=== PATIENT | male | born 1945 | race Caucasian/White ===

== ENCOUNTER 2016-10-20 08:40 | Emergency (ER) | payer MEDICARE, OTHER ==
[2016-10-20 08:58] VITALS: BP 131/81
--- NOTE | 2016-10-20 09:00 | EDM.PDOC ---
[id number] LT EYE ISSUES Time Seen by Provider: 10/20/16 08:45 Source of Information: Reports: Patient, Family History Limitations: Reports: No Limitations - History of Present Illness INITIAL COMMENTS - FREE TEXT/NARRATIVE: 71-year-old male with intense left eye redness and swelling over the past 24 hours. It started yesterday afternoon with a bloodshot eye, but this morning when he woke up it's very swollen, feels tight with some pressure. His vision is unaffected. He's had no specific trauma but he lifted a very heavy desk yesterday. He is on an aspirin a day, no other anticoagulants. Onset: Gradual (Over the past 24 hours) Location: Reports: Other (Left eye) Severity: Moderate Associated Symptoms: Reports: Other (He incidentally has a gout flareup of his left foot at this time) Left Eye Pain Score (Numeric/FACES): 1 - Related Data Allergies Allergy/AdvReac Type Severity Reaction Status Date / Time No Known Allergies Allergy Verified 10/20/16 08:52 Home Meds: Home Meds Allopurinol [Zyloprim] 50 mg PO DAILY 09/09/14 [History] Aspirin [Children's Aspirin] 81 mg PO DAILY 09/09/14 [History] Calcium Carbonate/Vitamin D3 [Calcium Carbonate/Vitamin D 1250 MG-200 Unit] 1 tab PO DAILY 09/09/14 [History] Citalopram Hydrobromide [Celexa] 20 mg PO BID 09/09/14 [History] Divalproex Sodium [Depakote] 250 mg PO BID 09/09/14 [History] Furosemide 20 mg PO DAILY 09/09/14 [History] Isosorbide Mononitrate [Imdur] 60 mg PO DAILY 09/09/14 [History] Lisinopril 2.5 mg PO DAILY 09/09/14 [History] Melatonin 5 mg PO BEDTIME 09/09/14 [History] Metoprolol Succinate [Toprol XL] 25 mg PO DAILY 09/09/14 [History] Potassium Gluconate [Potassium] 595 mg PO .QOD 09/09/14 [History] Simvastatin [Zocor] 40 mg PO BEDTIME 09/09/14 [History] Albuterol Sulfate [Proair Hfa] 1 - 2 puff INH Q4H PRN 10/06/15 [History] Famotidine 20 mg PO BID 10/06/15 [History] Gabapentin [Neurontin] 300 mg PO QID 10/06/15 [History] Nitroglycerin [Nitrostat] 1 tab SL ASDIRECTED 10/06/15 [History] predniSONE [Prednisone] 20 mg PO DAILY PRN 10/09/15 [History] Social & Family History - Tobacco Use Smoking Status *Q: Former Smoker Years of Tobacco use: 20 - Recreational Drug Use Recreational Drug Use: No ED ROS GENERAL - Review of Systems Review Of Systems: See Below Constitutional: Denies: Fever, Chills, Malaise HEENT: Reports: Eye Pain (Left eye pressure from the swelling). Denies: Vision Change Respiratory: Denies: Shortness of Breath Cardiovascular: Denies: Chest Pain GI/Abdominal: Denies: Nausea, Vomiting : Reports: No Symptoms Musculoskeletal: Reports: Other (Joint pain of his left foot) Neurological: Reports: No Symptoms ED EXAM GENERAL W FULL EYE - Physical Exam Exam: See Below Exam Limited By: No Limitations General Appearance: Alert, No Apparent Distress Eye Exam: Left Eye: Other (Patient has marked conjunctival and scleral hemorrhage which is contained and not actively bleeding, especially laterally of the left eye), Bilateral Eye: EOMI, PERRL Eyelids: Left: Edema (A small amount of hemorrhage and swelling is present of the left lower lid) Conjunctiva & Sclera: Left: Injected, Subconjuctival Hemorrhage Extraocular Movements: Bilateral: Intact Respiratory/Chest: No Respiratory Distress Course - Vital Signs Last Recorded V/S: Last Vital Signs Temp 97.3 F 10/20/16 08:52 Pulse 73 10/20/16 08:52 Resp 15 10/20/16 08:52 BP 131/81 10/20/16 08:52 Pulse Ox 96 10/20/16 08:52 - Re-Assessments/Exams Free Text/Narrative Re-Assessment/Exam: 10/20/16 08:59 This patient has a fairly significant subconjunctival hemorrhage of the left eye. Phone consultation with ophthalmology in [place] was obtained. 10/20/16 09:23 ophthalmology recommended conservative care only. This was relayed to the patient. I did recommend he recheck with optometry in the next day or 2 to follow the healing of the hemorrhage. Departure - Departure Time of Disposition: 09:38 Disposition: Home, Self-Care 01 Condition: Good Clinical Impression: Hemorrhage of conjunctiva Qualifiers: Laterality: left Qualified Code(s): H11.32 - Conjunctival hemorrhage, left eye - Discharge Information Instructions: Subconjunctival Hemorrhage Referrals: Alexis Mortensen PA-C [Primary Care Provider] - Forms: ED Department Discharge Care Plan Goals: Cool compresses to the eye, holding your aspirin for a few days may be beneficial. Recheck with optometry in the next few days to follow improvement.
== END 2016-10-20 09:39 | disposition home or self-care (01) ==
LOC: JP.ED 08:40
DX: H11.32 Conjunctival hemorrhage, left eye (principal); Z87.891 Personal history of nicotine dependence; Z79.899 Other long term (current) drug therapy; Z79.82 Long term (current) use of aspirin
CPT/HCPCS: 99283

== ENCOUNTER 2017-07-15 03:26 | Emergency (ER) | payer MEDICARE, OTHER ==
[2017-07-15] MEDS ORDERED: Sodium Chloride 0.9% 10 ML Syringe FLUSH PRN (03:56)
[2017-07-15] MEDS ORDERED: Aspirin 81 MG Tab.Chew PO ONE (03:56)
--- NOTE | 2017-07-15 03:59 | EDM.PDOC ---
ED HPI GENERAL MEDICAL PROBLEM - General Chief Complaint: Cardiovascular Problem Stated Complaint: SOB Time Seen by Provider: 07/15/17 03:50 Source of Information: Reports: Patient, Family, RN Notes Reviewed History Limitations: Reports: No Limitations - History of Present Illness INITIAL COMMENTS - FREE TEXT/NARRATIVE: 71-year-old gentleman presents to the emergency department day complaint of shortness of breath chest pressure, he states this all started about 1 AM this morning mainly difficulty breathing, no nausea vomiting no diaphoresis a history of stenting was recently catheterized at the [facility] in April of this year he states no stenting was done at that time denies pain Pain Score (Numeric/FACES): 0 - Related Data Allergies Allergy/AdvReac Type Severity Reaction Status Date / Time No Known Allergies Allergy Verified 07/15/17 03:30 Home Meds: Home Meds Allopurinol [Zyloprim] 50 mg PO DAILY 09/09/14 [History] Aspirin [Children's Aspirin] 81 mg PO DAILY 09/09/14 [History] Calcium Carbonate/Vitamin D3 [Calcium Carbonate/Vitamin D 1250 MG-200 Unit] 1 tab PO BEDTIME 09/09/14 [History] Furosemide 20 mg PO DAILY 09/09/14 [History] Lisinopril 30 mg PO BEDTIME 09/09/14 [History] Melatonin 5 mg PO BEDTIME 09/09/14 [History] Potassium Gluconate [Potassium] 595 mg PO ASDIRECTED 09/09/14 [History] Simvastatin [Zocor] 40 mg PO BEDTIME 09/09/14 [History] Famotidine 20 mg PO BID 10/06/15 [History] Nitroglycerin [Nitrostat] 0.4 mg SL ASDIRECTED 10/06/15 [History] predniSONE [Prednisone] 20 mg PO DAILY PRN 10/09/15 [History] FLUoxetine [PROzac] 60 mg PO DAILY 07/15/17 [History] Past Medical History HEENT History: Reports: Impaired Vision Cardiovascular History: Reports: Bypass, CAD, Heart Failure, Hypertension Gastrointestinal History: Reports: GERD Genitourinary History: Reports: Other (See Below) Other Genitourinary History: PROSTATE CA Musculoskeletal History: Reports: Arthritis, Back Pain, Chronic Psychiatric History: Reports: Other (See Below) Other Psychiatric History: REPETATIVE THOUGHTS AND MOVEMENTS Oncologic (Cancer) History: Reports: Prostate - Infectious Disease History Infectious Disease History: Reports: Chicken Pox, Shingles - Past Surgical History HEENT Surgical History: Reports: Tonsillectomy Cardiovascular Surgical History: Reports: Coronary Artery Stent GI Surgical History: Reports: Cholecystectomy Neurological Surgical History: Reports: Spinal Fusion, Other (See Below) Other Neurological Surgeries/Procedures: spinal stenosis Musculoskeletal Surgical History: Reports: Other (See Below) Other Musculoskeletal Surgeries/Procedures:: REPAIR OF STENOSIS AND HERNIATED DISC Social & Family History - Tobacco Use Smoking Status *Q: Never Smoker Years of Tobacco use: 20 - Caffeine Use Caffeine Use: Reports: Tea - Recreational Drug Use Recreational Drug Use: No ED ROS GENERAL - Review of Systems Review Of Systems: See Below Constitutional: Reports: No Symptoms HEENT: Reports: No Symptoms Respiratory: Reports: Shortness of Breath. Denies: Wheezing, Cough, Sputum Cardiovascular: Reports: Chest Pain, Dyspnea on Exertion GI/Abdominal: Reports: No Symptoms : Reports: No Symptoms Musculoskeletal: Reports: No Symptoms Skin: Reports: No Symptoms Neurological: Reports: No Symptoms ED EXAM, GENERAL - Physical Exam Exam: See Below Exam Limited By: No Limitations General Appearance: Alert, Mild Distress Head: Atraumatic, Normocephalic Neck: Normal Inspection, Supple, Non-Tender, Full Range of Motion Respiratory/Chest: No Respiratory Distress, No Accessory Muscle Use, Chest Non- Tender, Crackles (Fine crackles in the bases bilaterally) Cardiovascular: Regular Rate, Rhythm, No Murmur GI/Abdominal: Soft, Non-Tender Course - Vital Signs Last Recorded V/S: Last Vital Signs Temp 97.0 F 07/15/17 03:44 Pulse 59 L 07/15/17 05:04 Resp 11 L 07/15/17 05:04 BP 108/59 L 07/15/17 05:04 Pulse Ox 94 L 07/15/17 05:04 - Orders/Labs/Meds Orders: Active Orders 24 hr Category Date Time Status Cardiac Monitoring [RC] .As Directed Care 07/15/17 03:56 Active EKG Documentation Completion [RC] ASDIRECTED Care 07/15/17 03:57 Active Peripheral IV Care [RC] . DIRECTED Care 07/15/17 03:56 Active Chest 2V [CR] Stat Exams 07/15/17 03:57 Taken Lactated Ringers [Ringers, Lactated] 1,000 ml Med 07/15/17 04:00 Active IV ASDIRECTED Sodium Chloride 0.9% [Saline Flush] Med 07/15/17 03:56 Active 10 ml FLUSH ASDIRECTED PRN Peripheral IV Insertion Adult [OM.PC] Stat Oth 07/15/17 03:56 Ordered EKG 12 Lead [EK] Stat Ther 07/15/17 03:57 Ordered Medication Orders Lactated Ringer's (Ringers, Lactated) 1,000 mls @ 500 mls/hr IV ASDIRECTED GAMAL Last Admin: 07/15/17 04:10 Dose: 500 mls/hr Sodium Chloride (Saline Flush) 10 ml FLUSH ASDIRECTED PRN PRN Reason: Keep Vein Open Last Admin: 07/15/17 04:12 Dose: 10 ml Labs: Laboratory Tests 07/15/17 07/15/17 Range/Units 03:56 04:05 WBC 4.2 L (4.5-11.0) K/uL RBC 3.46 L (4.30-5.90) M/uL Hgb 10.2 L (12.0-15.0) g/dL Hct 31.3 L (40.0-54.0) % MCV 91 (80-98) fL MCH 30 (27-31) pg MCHC 33 (32-36) % Plt Count 114 L (150-400) K/uL Neut % (Auto) 41 (36-66) % Lymph % (Auto) 38 (24-44) % Pepin % (Auto) 19 H (2-6) % Eos % (Auto) 2 (2-4) % Baso % (Auto) 0 (0-1) % Sodium 136 L (140-148) mmol/L Potassium 4.1 (3.6-5.2) mmol/L Chloride 102 (100-108) mmol/L Carbon Dioxide 19 L (21-32) mmol/L Anion Gap 19.1 H (5.0-14.0) mmol/L BUN 44 H (7-18) mg/dL Creatinine 2.7 H D (0.8-1.3) mg/dL Est Cr Clr Drug Dosing 24.37 mL/min Estimated GFR (MDRD) 23 L (>60) Glucose 87 (74-106) mg/dL Calcium 9.0 (8.5-10.1) mg/dL Total Bilirubin 1.0 (0.2-1.0) mg/dL AST 49 H (15-37) U/L ALT 54 (12-78) U/L Alkaline Phosphatase 90 (46-116) U/L CK-MB (CK-2) 2.2 (0-3.6) mg/mL Troponin I < 0.017 (0.000-0.056) ng/mL NT-Pro-B Natriuret Pep 657 H (5-125) pg/mL Total Protein 6.8 (6.4-8.2) g/dL Albumin 4.1 (3.4-5.0) g/dL Globulin 2.7 (2.3-3.5) g/dL Albumin/Globulin Ratio 1.5 (1.2-2.2) Meds: Medications Generic Name Dose Route Start Last Admin Trade Name Freq PRN Reason Stop Dose Admin Lactated Ringer's 1,000 mls @ 500 mls/hr 07/15/17 04:00 07/15/17 04:10 Ringers, Lactated IV 500 mls/hr ASDIRECTED GAMAL Administration Sodium Chloride 10 ml 07/15/17 03:56 07/15/17 04:12 Saline Flush FLUSH 10 ml ASDIRECTED PRN Administration Keep Vein Open Discontinued Medications Generic Name Dose Route Start Last Admin Trade Name Freq PRN Reason Stop Dose Admin Aspirin 324 mg 07/15/17 03:56 07/15/17 04:10 Aspirin PO 07/15/17 03:57 324 mg ONETIME ONE Administration Departure - Departure Time of Disposition: 05:40 Disposition: Home, Self-Care 01 Condition: Good Clinical Impression: SOB (shortness of breath) Referrals: Fer May DIETARY MANAGER [Primary Care Provider] - Forms: ED Department Discharge Additional Instructions: Please followup with your primary care provider in 3-5 days if not better, please call return to the emergency department with worsening of symptoms. - My Orders Last 24 Hours: My Active Orders 07/15/17 03:56 Cardiac Monitoring [RC] .As Directed Peripheral IV Care [RC] . DIRECTED Sodium Chloride 0.9% [Saline Flush] 10 ml FLUSH ASDIRECTED PRN Peripheral IV Insertion Adult [OM.PC] Stat 07/15/17 03:57 EKG Documentation Completion [RC] ASDIRECTED Chest 2V [CR] Stat EKG 12 Lead [EK] Stat 07/15/17 04:00 Lactated Ringers [Ringers, Lactated] 1,000 ml IV ASDIRECTED - Assessment/Plan Last 24 Hours: My Active Orders 07/15/17 03:56 Cardiac Monitoring [RC] .As Directed Peripheral IV Care [RC] . DIRECTED Sodium Chloride 0.9% [Saline Flush] 10 ml FLUSH ASDIRECTED PRN Peripheral IV Insertion Adult [OM.PC] Stat 07/15/17 03:57 EKG Documentation Completion [RC] ASDIRECTED Chest 2V [CR] Stat EKG 12 Lead [EK] Stat 07/15/17 04:00 Lactated Ringers [Ringers, Lactated] 1,000 ml IV ASDIRECTED Plan: Assessment Acuity = acute Site and laterality = dyspnea complicated patient with known history of coronary artery disease and congestive heart failure Etiology = probable panic attack due to power outage while wearing CPAP Manifestations = none Location of injury = Home Lab values = hemoglobin low at 10.2 consistent with normochromic anemia creatinine elevated at 2.7 consistent with chronic renal failure stage GIV, troponin is negative, BNP mildly elevated at 657, baseline chest x-ray I did review films myself I cannot appreciate any acute process, the official read from radiology is pending, EKG that show ST depressions in leads V1 and V2 V3 however these are not new Plan He had significant improvement with time, feels he is back to his baseline I did review lab work EKG results with him plan is follow-up primary care to 5 days if not better This note was dictated using [employer] voice recognition software please call with any questions on syntax or mariano.
[2017-07-15] MEDS ORDERED: Lactated Ringers 1,000 ML IV SCH (04:00)
[2017-07-15 05:04] VITALS: BP 108/59
--- NOTE | 2017-07-15 09:02 | CR ---
CHEST: Sitting AP and lateral CLINICAL HISTORY:Chest pain COMPARISON:CT chest 2017 FINDINGS: Heart size is upper limits of normal. Patient has had previous sternotomy. There are ather osclerotic changes in the aorta.. There is no infiltrate, effusion or pneumothorax. IMPRESSION: Previous sternotomy Borderline cardiomegaly No acute cardiopulmonary process
== END 2017-07-15 05:44 | disposition home or self-care (01) ==
LOC: JP.ED 03:26
DX: R06.02 Shortness of breath (principal); I11.0 Hypertensive heart disease with heart failure; I50.9 Heart failure, unspecified; K21.9 Gastro-esophageal reflux disease without esophagitis; Z79.82 Long term (current) use of aspirin; Z79.899 Other long term (current) drug therapy
CPT/HCPCS: 36415; 71046; 80053; 82553; 83880; 84484; 85025; 93005; 99285; A9270; J7050; J7120; 93010

== ENCOUNTER 2017-09-29 05:37 | Emergency (ER) | payer MEDICARE, OTHER ==
[2017-09-29 05:47] VITALS: BP 129/72
--- NOTE | 2017-09-29 06:07 | EDM.PDOC ---
ED HPI GENERAL MEDICAL PROBLEM - General Chief Complaint: Respiratory Problem Stated Complaint: SOB Time Seen by Provider: 09/29/17 05:45 Source of Information: Reports: Patient History Limitations: Reports: No Limitations - History of Present Illness INITIAL COMMENTS - FREE TEXT/NARRATIVE: 72-year-old male comes in with shortness of breath overnight. Slight chest pressure but no pain. This is but an ongoing recurrent problem for him, he had several hospital workups ending up at [facility] and was told he has "congestive heart failure". Onset: Gradual Duration: Hour(s): (Symptoms for about 12 hours) Severity: Mild Worsens with: Reports: Other (Lying down or resting seems worse) Associated Symptoms: Reports: Chest Pain (Slight chest pressure) chest pressure Pain Score (Numeric/FACES): 6 - Related Data Allergies Allergy/AdvReac Type Severity Reaction Status Date / Time No Known Allergies Allergy Verified 09/29/17 05:44 Home Meds: Home Meds Allopurinol [Zyloprim] 50 mg PO DAILY 09/09/14 [History] Aspirin [Children's Aspirin] 81 mg PO DAILY 09/09/14 [History] Calcium Carbonate/Vitamin D3 [Calcium Carbonate/Vitamin D 1250 MG-200 Unit] 1 tab PO BEDTIME 09/09/14 [History] Furosemide 20 mg PO DAILY 09/09/14 [History] Lisinopril 30 mg PO BEDTIME 09/09/14 [History] Melatonin 5 mg PO BEDTIME 09/09/14 [History] Potassium Gluconate [Potassium] 595 mg PO ASDIRECTED 09/09/14 [History] Simvastatin [Zocor] 40 mg PO BEDTIME 09/09/14 [History] Famotidine 20 mg PO BID 10/06/15 [History] Nitroglycerin [Nitrostat] 0.4 mg SL ASDIRECTED 10/06/15 [History] predniSONE [Prednisone] 20 mg PO DAILY PRN 10/09/15 [History] FLUoxetine [PROzac] 60 mg PO DAILY 07/15/17 [History] Past Medical History HEENT History: Reports: Impaired Vision Cardiovascular History: Reports: Bypass, CAD, Heart Failure, Hypertension Respiratory History: Reports: SOB, Other (See Below) Other Respiratory History: Cpap Gastrointestinal History: Reports: GERD Genitourinary History: Reports: Other (See Below) Other Genitourinary History: PROSTATE CA Musculoskeletal History: Reports: Arthritis, Back Pain, Chronic Psychiatric History: Reports: Anxiety, Mood Swings, OCD, Other (See Below) Other Psychiatric History: REPETATIVE THOUGHTS AND MOVEMENTS. Irritability and anger. mild cognitive impairment Oncologic (Cancer) History: Reports: Prostate - Infectious Disease History Infectious Disease History: Reports: Chicken Pox, Shingles - Past Surgical History HEENT Surgical History: Reports: Tonsillectomy Cardiovascular Surgical History: Reports: Coronary Artery Stent GI Surgical History: Reports: Cholecystectomy Neurological Surgical History: Reports: Spinal Fusion, Other (See Below) Other Neurological Surgeries/Procedures: spinal stenosis Musculoskeletal Surgical History: Reports: Other (See Below) Other Musculoskeletal Surgeries/Procedures:: REPAIR OF STENOSIS AND HERNIATED DISC Social & Family History - Tobacco Use Smoking Status *Q: Never Smoker - Caffeine Use Caffeine Use: Reports: Coffee - Recreational Drug Use Recreational Drug Use: No ED ROS GENERAL - Review of Systems Review Of Systems: See Below Constitutional: Denies: Fever Respiratory: Reports: Shortness of Breath. Denies: Cough Cardiovascular: Reports: Chest Pain GI/Abdominal: Denies: Abdominal Pain, Nausea, Vomiting Neurological: Denies: Headache Psychiatric: Reports: Anxiety ED EXAM, GENERAL - Physical Exam Exam: See Below Exam Limited By: No Limitations General Appearance: Alert, Anxious Head: Atraumatic Respiratory/Chest: No Respiratory Distress, Lungs Clear Cardiovascular: Regular Rate, Rhythm. No: Extra Beats Extremities: Pedal Edema (Just a trace of lower extremity edema, symmetric) Course - Vital Signs Last Recorded V/S: Last Vital Signs Temp 98.1 F 09/29/17 05:51 Pulse 59 L 09/29/17 05:51 Resp 14 09/29/17 05:51 BP 129/72 09/29/17 05:51 Pulse Ox 97 09/29/17 05:51 - Orders/Labs/Meds Meds: Medications Discontinued Medications Generic Name Dose Route Start Last Admin Trade Name Freq PRN Reason Stop Dose Admin Lorazepam 1 mg 09/29/17 06:43 09/29/17 06:49 Ativan PO 09/29/17 06:44 1 mg ONETIME ONE Administration - Re-Assessments/Exams Free Text/Narrative Re-Assessment/Exam: 09/29/17 06:41 Reviewed his medical records from a very similar visit a few months ago, a huge workup was negative. An angiogram in July needed no interventions. A two-view chest x-ray shows no change in the last 8 months. There is no congestive failure. No infiltrates. O2 saturations remained 98-100%. We discussed anxiety and the patient admitted he feels anxious. He was given 1 mg of oral Ativan to take when he gets home and he can follow-up with his primary care later this week if he is not improving satisfactorily or return to the emergency room if worsening Departure - Departure Time of Disposition: 06:52 Disposition: Home, Self-Care 01 Condition: Good Clinical Impression: SOB (shortness of breath) - Discharge Information *PRESCRIPTION DRUG MONITORING PROGRAM REVIEWED*: No Instructions: Shortness of Breath, Adult, [id number] Referrals: PCP,None [Primary Care Provider] - Forms: ED Department Discharge Care Plan Goals: Continue your current medications and try the one dose of Ativan to help you get some rest today. Activity as tolerated. Recheck at the clinic anytime this week if not improving satisfactorily, or return to the emergency room if you feel you are worsening or need further care.
[2017-09-29] MEDS ORDERED: LORazepam 1 MG Tab PO ONE (06:43)
--- NOTE | 2017-09-29 09:42 | CR ---
CHEST: 2 view CLINICAL HISTORY:Dyspnea COMPARISON:15 Jul 2017 FINDINGS: Heart is enlarged. Patient has had previous sternotomy. There are atherosclerotic changes in the aorta.. Coronary vascular is normal. No fractures are seen. IMPRESSION: Cardiomegaly Previous sternotomy No acute cardiopulmonary process
== END 2017-09-29 06:52 | disposition home or self-care (01) ==
LOC: JP.ED 05:37
DX: R06.02 Shortness of breath (principal); Z79.82 Long term (current) use of aspirin
CPT/HCPCS: 71046; 99285; A9270

== ENCOUNTER 2017-11-09 08:44 | Emergency (ER) | payer MEDICARE, OTHER ==
[2017-11-09 09:41] VITALS: BP 104/49
--- NOTE | 2017-11-09 10:04 | EDM.PDOC ---
ED HPI GENERAL MEDICAL PROBLEM - General Chief Complaint: Respiratory Problem Stated Complaint: SHORTNESS OF BREATH Time Seen by Provider: 11/09/17 09:45 Source of Information: Reports: Patient, Family History Limitations: Reports: No Limitations - History of Present Illness INITIAL COMMENTS - FREE TEXT/NARRATIVE: 72-year-old male with shortness of breath since the middle of last night. He's been taking 3-4 oxycodone daily for the past 3 weeks, ran out on Friday and did not tell his primary doctor because he wanted to see if he could go without it and now is feeling very uncomfortable. No cough, no chest pain, no peripheral edema. He feels increased anxiety and depression over the past several days. Onset: Gradual (Over the last 12 hours) Severity: Mild Associated Symptoms: Reports: Shortness of Breath, Other (Anxiety, depression and restlessness). Denies: Diaphoresis, Fever/Chills, Nausea/Vomiting - Related Data Allergies Allergy/AdvReac Type Severity Reaction Status Date / Time No Known Allergies Allergy Verified 11/09/17 09:36 Home Meds: Home Meds Allopurinol [Zyloprim] 50 mg PO DAILY 09/09/14 [History] Aspirin [Children's Aspirin] 81 mg PO DAILY 09/09/14 [History] Calcium Carbonate/Vitamin D3 [Calcium Carbonate/Vitamin D 1250 MG-200 Unit] 1 tab PO BEDTIME 09/09/14 [History] Lisinopril 20 mg PO DAILY 09/09/14 [History] Melatonin 5 mg PO BEDTIME 09/09/14 [History] Potassium Gluconate [Potassium] 595 mg PO ASDIRECTED 09/09/14 [History] Simvastatin [Zocor] 40 mg PO BEDTIME 09/09/14 [History] Famotidine 20 mg PO BID 10/06/15 [History] FLUoxetine [PROzac] 60 mg PO DAILY 07/15/17 [History] Carvedilol 2 tab PO DAILY 11/09/17 [History] Clopidogrel Bisulfate [Clopidogrel] 1 tab PO DAILY 11/09/17 [History] Tamsulosin [Flomax] 1 tab PO DAILY 11/09/17 [History] Past Medical History HEENT History: Reports: Impaired Vision Cardiovascular History: Reports: Bypass, CAD, Heart Failure, Hypertension Respiratory History: Reports: SOB, Other (See Below) Other Respiratory History: Cpap Gastrointestinal History: Reports: GERD Genitourinary History: Reports: Other (See Below) Other Genitourinary History: PROSTATE CA Musculoskeletal History: Reports: Arthritis, Back Pain, Chronic Psychiatric History: Reports: Anxiety, Mood Swings, OCD, Other (See Below) Other Psychiatric History: REPETATIVE THOUGHTS AND MOVEMENTS. Irritability and anger. mild cognitive impairment Oncologic (Cancer) History: Reports: Prostate - Infectious Disease History Infectious Disease History: Reports: Chicken Pox, Shingles - Past Surgical History HEENT Surgical History: Reports: Tonsillectomy Cardiovascular Surgical History: Reports: Coronary Artery Stent GI Surgical History: Reports: Cholecystectomy Neurological Surgical History: Reports: Spinal Fusion, Other (See Below) Other Neurological Surgeries/Procedures: spinal stenosis Musculoskeletal Surgical History: Reports: Other (See Below) Other Musculoskeletal Surgeries/Procedures:: REPAIR OF STENOSIS AND HERNIATED DISC Social & Family History - Tobacco Use Smoking Status *Q: Never Smoker - Caffeine Use Caffeine Use: Reports: Coffee - Recreational Drug Use Recreational Drug Use: No ED ROS GENERAL - Review of Systems Review Of Systems: See Below Constitutional: Denies: Fever, Chills HEENT: Reports: No Symptoms Respiratory: Reports: Shortness of Breath. Denies: Cough Cardiovascular: Denies: Chest Pain, Palpitations GI/Abdominal: Denies: Abdominal Pain, Nausea : Reports: No Symptoms Musculoskeletal: Reports: Other (Chronic pain of his back shoulder and hip) Skin: Denies: Rash Neurological: Denies: Headache Psychiatric: Reports: Anxiety, Depression ED EXAM, GENERAL - Physical Exam Exam: See Below Exam Limited By: No Limitations General Appearance: Alert, No Apparent Distress, Anxious Eye Exam: Bilateral Eye: EOMI Head: Atraumatic Respiratory/Chest: No Respiratory Distress, Lungs Clear Cardiovascular: Regular Rate, Rhythm, No Murmur GI/Abdominal: Soft, Non-Tender Extremities: Other (Just a trace of edema of the lower extremities) Neurological: Alert, Oriented, No Motor/Sensory Deficits Psychiatric: Depressed Mood, Flat Affect Skin Exam: Warm, Dry Course - Vital Signs Last Recorded V/S: Last Vital Signs Temp 97.3 F 11/09/17 09:39 Pulse 60 11/09/17 09:39 Resp 15 11/09/17 09:39 BP 104/49 L 11/09/17 09:39 Pulse Ox 95 11/09/17 09:39 - Orders/Labs/Meds Orders: Active Orders 24 hr Category Date Time Status Chest 2V [CR] Routine Exams 11/09/17 09:56 Taken - Re-Assessments/Exams Free Text/Narrative Re-Assessment/Exam: 11/09/17 10:03 A two-view chest x-ray was obtained, LACE STRIPPER search was done and the patient was given 90 5 mg oxycodone 3 weeks ago. 11/09/17 10:31 Patient returned from x-ray and is feeling much better, he's calmed down and his dyspnea has improved. X-ray is normal baseline. 11/09/17 10:33 I had a lengthy discussion with the patient and his about possible treatment options. He declined a psychologist evaluation and his felt he was not a danger or threat and was comfortable taking him home. He wants to try a dose of oxycodone just at bedtime, and discuss this with his primary provider in the next few days. He really has a strong interest in medical marijuana. Departure - Departure Time of Disposition: 10:51 Disposition: Home, Self-Care 01 Condition: Good Clinical Impression: Chronic pain disorder, Anxiety about health - Discharge Information Instructions: Chronic Pain, Adult Referrals: Fer May NP [Primary Care Provider] - Forms: ED Department Discharge Care Plan Goals: Continue your current medications and use oxycodone as discussed. Recheck with your regular provider in the next 2-4 days to discuss options of treatment. Return to the emergency room if you feel you are worsening despite treatment. - My Orders Last 24 Hours: My Active Orders 11/09/17 09:56 Chest 2V [CR] Routine - Assessment/Plan Last 24 Hours: My Active Orders 11/09/17 09:56 Chest 2V [CR] Routine
--- NOTE | 2017-11-10 10:02 | CR ---
CHEST: 2 view CLINICAL HISTORY:Dyspnea COMPARISON:29 September 2017 FINDINGS: Heart size is normal. There has been previous sternotomy. There are atherosclerotic change s in the aorta. One calixto are clear. IMPRESSION: Previous sternotomy No acute cardiopulmonary process or significant change from prior study
== END 2017-11-09 10:51 | disposition home or self-care (01) ==
LOC: JP.ED 08:44
DX: G89.4 Chronic pain syndrome (principal); F41.9 Anxiety disorder, unspecified; I11.0 Hypertensive heart disease with heart failure; I50.9 Heart failure, unspecified; Z79.82 Long term (current) use of aspirin; Z79.899 Other long term (current) drug therapy
CPT/HCPCS: 71046; 71046-26; 99285

== ENCOUNTER 2018-06-03 07:34 | Day surgery (SDC) | payer MEDICARE, OTHER ==
[~2018-06-03 07:34] MED LIST: Povidone-Iodine 10% Soln 118.25 ML Bottle ONE
[2018-06-03] MEDS ORDERED: Ondansetron 4 MG/2 ML SDV ONE (07:55)
[2018-06-03] MEDS ORDERED: Succinylcholine 200 MG/10 ML MDV ONE (07:55)
[2018-06-03] MEDS ORDERED: Midazolam 1 MG/ML 2 ML SDV ONE (07:55)
[2018-06-03] MEDS ORDERED: fentaNYL 250 MCG/5 ML SDV ONE (07:55)
[2018-06-03] MEDS ORDERED: Dexamethasone 4 MG/ML SDV ONE (07:55)
[2018-06-03] MEDS ORDERED: Rocuronium 50 MG/5 ML Vial ONE (07:55)
[2018-06-03] MEDS ORDERED: Propofol 200 MG/20 ML SDV ONE (07:55)
[2018-06-03] MEDS ORDERED: Acetaminophen 500 MG Tab PO ONE (08:00)
[2018-06-03] MEDS ORDERED: Nozin Nasal Sanitizer NASBOTH ONE (08:00)
[2018-06-03] MEDS ORDERED: Scopolamine 1.5 MG Transdermal Patch TOP SCH (08:00)
[2018-06-03] MEDS ORDERED: Lidocaine 1% PF 2 ML SDV ONE (08:00)
[2018-06-03] MEDS ORDERED: Clindamycin Phosphate 900 MG in Sodium Chloride 0.9% 100 ML IV ONE (08:15)
[2018-06-03] MEDS: Lactated Ringers 1,000 ML IV SCH ×2 (09:01→11:34)
[2018-06-03] MEDS ORDERED: Phenylephrine 1% 10 MG/ML SDV ONE (09:58)
[2018-06-03] MEDS ORDERED: ePHEDrine 50 MG/ML SDV ONE (10:20)
[2018-06-03] MEDS ORDERED: Lactated Ringers 1,000 ML ONE (11:08)
[2018-06-03] MEDS ORDERED: Acetaminophen 325 MG Tab PO PRN (11:19)
[2018-06-03] MEDS ORDERED: Acetaminophen/HYDROcodone 325-5 MG Tab PO PRN (11:19)
[2018-06-03] MEDS ORDERED: Morphine 2 MG/ML Syringe IVPUSH PRN (11:31)
[2018-06-03] MEDS ORDERED: Morphine 2 MG/ML Syringe IVPUSH ONE (11:32)
[2018-06-03] MEDS: Sodium Chloride 0.9% 1,000 ML IV SCH ×2 (12:16→22:16)
--- NOTE | 2018-06-03 16:23 | PCM.OPNOTE ---
- General Post-Op/Procedure Note Date of Surgery/Procedure: 06/03/18 Operative Procedure(s): Hemiarthroplasty right shoulder, Sheryl TM size 14 stem , 42 mm head Findings: Osteoarthritis right shoulder Pre Op Diagnosis: Osteoarthritis right shoulder Post-Op Diagnosis: Same Anesthesia Technique: General ET Tube, Regional Block Primary Surgeon: Simone Key EBL in mLs: 200 Complications: None Condition: Good Free Text/Narrative:: Intake & Output 06/03/18 06/03/18 06/03/18 06:59 14:59 22:59 Intake Total 75 Output Total 100 Balance -25 Indications: Javier is a 72-year-old gentleman with a history of progressive pain in his right shoulder for the past several months. Range of motion is becoming increasingly difficult and he has pain with reaching and activities of daily living. Examination and imaging are consistent with osteoarthritis of the glenohumeral joint. Rotator cuff is intact by exam and imaging. He has no significant deformity of the glenoid. Hemiarthroplasty of the right shoulder isrecommended, with the possibility of a total shoulder arthroplasty if significant damage is noted on the glenoid side. Risks, benefits and potential complications were discussed. He agrees to proceed. procedure: After adequate anesthesia was obtained patient was placed in a modified beachchair position. Right shoulder and arm were then prepped and draped in a sterile fashion. Anterior incision was made and carried down through the subcutaneous tissues. Hemostasis was obtained with electrocautery.The deltopectoral interval was identified and the cephalic vein was retracted laterally with the deltoid.Blunt dissection carried down to the subscapularis. Plane was developed beneath the deltoid and a self-retaining retractor was placed. Conjoined tendon was intact. The subscapularis was intact. The tendon was divided just under than a centimeter from its attachment and sutures were placed in the cut edge and used for retraction. Capsule was released from the inferior humeral head and neck.Progressive external rotation revealed the humeral head with degenerative changes and full-thickness cartilage loss. Retractor was placed superiorly protecting the biceps tendon which was intact. he starting awl was used to make ahole in the superior humerus just off the edge of the articular cartilage. Canal was then sequentially reamed by hand to a size 14.Last reamer was left in place and the cutting jig was then attached Rotation was set using the aiming guides and the cutting jig was secured with pins. The reamer was removed. An oscillating saw was then used to make the femoral head cut. Cutting jig was removed.Humerus was then retracted posteriorly allowing visualization of the glenoid. Showed areas of full- thickness wear but no deformity and the labrum was intact. Decision was made to proceed with the hemiarthroplasty. The larger reamer was used in the metaphysis. Trial stem was then placed with excellent position. Trial was removed and the shoulder was irrigated. A size 14 trabecular metal stem was then tapped into position. This seated very well. A trial 42 mm offset head was then utilized.This reproduced head thickness. Shoulder was reduced and taken through range of motion. Showed very good soft tissue balance. The trial was removed.The taper was cleaned and dried. A 42 humeral head was then placed at an optimal rotation for coverage. This was then tapped into position on the taper.Shoulder was reduced and again taken through range of motion and stability and soft tissue balance checked. There was then irrigated with a dilute solution of Betadine The subscapularis was then closed using #1 Ethibond in interrupted fashion. Skin was closed with 2-0 Vicryl and a running 3-0 Monocryl. Steri-Strips were applied. Sterile dressing was then placed. Patient tolerated the procedure well there were no complications and he was taken from the operating room in a stable condition.
[2018-06-03] MEDS: Carvedilol 3.125 MG Tab PO SCH (16:44)
[2018-06-03] MEDS: Acetaminophen/oxyCODONE 325-10 MG Tab PO PRN ×2 (18:11→22:15)
[2018-06-03] MEDS: Famotidine 20 MG Tab PO SCH (21:02)
[2018-06-03] MEDS: ceFAZolin 2 GM in Premix Bag 1 BAG IV SCH (21:03)
[2018-06-03] MEDS: Nozin Nasal Sanitizer NASBOTH SCH (21:07)
[2018-06-04] MEDS: Acetaminophen/oxyCODONE 325-10 MG Tab PO PRN ×2 (02:38→07:57)
[2018-06-04] MEDS: Sodium Chloride 0.9% 1,000 ML IV SCH (07:53)
[2018-06-04] MEDS: Carvedilol 3.125 MG Tab PO SCH (07:56)
[2018-06-04] MEDS: Famotidine 20 MG Tab PO SCH (08:05)
[2018-06-04] MEDS: Nozin Nasal Sanitizer NASBOTH SCH (08:06)
[2018-06-04] MEDS ORDERED: Lisinopril 20 MG Tab PO SCH (09:00)
[2018-06-04] MEDS ORDERED: DULoxetine 20 MG Cap PO SCH (09:00)
[2018-06-04] MEDS ORDERED: Tamsulosin 0.4 MG Cap.ER PO SCH (09:00)
[2018-06-04] MEDS ORDERED: Clopidogrel 75 MG Tab PO SCH (09:00)
[2018-06-04] MEDS ORDERED: Allopurinol 100 MG Tab PO SCH (09:00)
[2018-06-04] MEDS ORDERED: Aspirin 81 MG Tab.Chew PO SCH (09:00)
[2018-06-04] MEDS: ceFAZolin 2 GM in Premix Bag 1 BAG IV SCH (10:20)
[2018-06-04 11:52] VITALS: BP 122/63
[2018-06-05] MEDS ORDERED: Potassium Chloride 10 MEQ Cap.ER PO SCH (09:00)
== END 2018-06-04 13:13 | disposition home or self-care (01) ==
LOC: JP.SDS 07:34 → JP.MS 11:19 → JP.SDS 06-04 13:13
PROVIDERS: ATTEND Specialist
DX: M19.011 Primary osteoarthritis, right shoulder (principal); I13.0 Hypertensive heart and chronic kidney disease with heart failure and stage 1 through stage 4 chronic kidney disease, or unspecified chronic kidney disease; I50.9 Heart failure, unspecified; N18.3 Chronic kidney disease, stage 3 (moderate); E66.01 Morbid (severe) obesity due to excess calories; Z68.35 Body mass index [BMI] 35.0-35.9, adult; G47.33 Obstructive sleep apnea (adult) (pediatric); Z99.89 Dependence on other enabling machines and devices; I25.10 Atherosclerotic heart disease of native coronary artery without angina pectoris; I27.20 Pulmonary hypertension, unspecified; E78.00 Pure hypercholesterolemia, unspecified; K21.9 Gastro-esophageal reflux disease without esophagitis; Z79.891 Long term (current) use of opiate analgesic; Z79.02 Long term (current) use of antithrombotics/antiplatelets; Z79.82 Long term (current) use of aspirin; Z79.899 Other long term (current) drug therapy; Z88.0 Allergy status to penicillin
CPT/HCPCS: 23470; 36415; 80053; 85027; 86850; 86900; 86901; 97110; 97161; 97165; 97530; 97535; A9270; J0330; J0690; J1100; J2001; J2250; J2270; J2370; J2405; J2704; J3010; J3490; J7030; J7120; C1776

== ENCOUNTER 2021-11-17 02:03 | Emergency (ER) | payer MEDICARE, OTHER ==
[2021-11-17] MEDS ORDERED: Ondansetron 4 MG/2 ML SDV IVPUSH ONE (02:15)
[2021-11-17] MEDS ORDERED: Sodium Chloride 0.9% 10 ML Syringe FLUSH PRN (02:20)
[2021-11-17] MEDS ORDERED: HYDROmorphone 1 MG/ML Syringe IVPUSH ONE (02:20)
[2021-11-17 03:03] LABS: ESTIMATED GFR 47 mL/min (>60)
[2021-11-17] MEDS ORDERED: Aspirin 81 MG Tab.Chew PO ONE (03:12)
[2021-11-17] MEDS ORDERED: Nitroglycerin 0.4 MG Tab.SL SL ONE (03:23)
[2021-11-17] MEDS ORDERED: Morphine 4 MG/ML Syringe IVPUSH ONE (04:03)
[2021-11-17 04:51] VITALS: BP 174/105; PULSE 90
== END 2021-11-17 05:50 | disposition home or self-care (01) ==
LOC: JP.ED 02:03
DX: R51.9 Headache, unspecified (principal); I25.10 Atherosclerotic heart disease of native coronary artery without angina pectoris; I11.0 Hypertensive heart disease with heart failure; I50.9 Heart failure, unspecified; K21.9 Gastro-esophageal reflux disease without esophagitis; M19.90 Unspecified osteoarthritis, unspecified site; Z87.891 Personal history of nicotine dependence; Z88.0 Allergy status to penicillin; Z79.82 Long term (current) use of aspirin; Z79.899 Other long term (current) drug therapy; Z79.02 Long term (current) use of antithrombotics/antiplatelets; Z95.1 Presence of aortocoronary bypass graft
CPT/HCPCS: 36415; 70450; 80053; 83605; 84484; 85025; 85610; 93005; 96374; 96375; 99284; A9270; J1170; J2270; J2405; J3490